=== PATIENT | male | born 1995 | race Caucasian/White ===

== ENCOUNTER 2019-05-05 16:11 | Outpatient (CLI) | payer OTHER ==
--- NOTE | 2019-05-05 17:46 | Diagnostic Imaging Report ---
PATIENT MR#: [id number] PATIENT PATIENT NAME: JOYCELYN ESPINAL DATE OF : 1995 REFERRING PHYSICIAN: Nani Bertrand EXAM DATE: 05/05/2019 ACCESSION NUMBER: [id number] EXAM DESCRIPTION: ABD COMPLETE HISTORY: Nausea and vomiting x 8 months COMPARISON: No pertinent prior studies are available at this time. ABDOMINAL XRAY, 4 FRONTAL VIEWS: Surgical: Surgical changes noted in the right lower quadrant, possibly status post bowel anastomosis or appendectomy. Bowel gas pattern: No evidence of obstruction. No free air beneath the diaphragms. Calcifications: No findings to suggest nephrolithiasis by x-ray sensitivity. 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 IMPRESSION: 1. Normal bowel gas pattern, without obstruction. 2. Right lower quadrant bowel sutures. Correlate with prior surgical history. Read by: Dr. Valentín Judge Transcribed by: Valentín Judge Transcribed Date: 05/05/2019 5:45:29 PM Electronically signed by: Dr. Valentín Judge Date signed: 05/05/2019 5:45:29 PM
== END 2019-05-05 16:21 ==
LOC: RAD 16:11 → EDSTATUS 16:20 → RAD 16:21
PROVIDERS: ATTEND Nurse Practitioner Family
DX: R11.2 Nausea with vomiting, unspecified (principal)
CPT/HCPCS: 74019